=== PATIENT | female | born 2000 | race American Indian/Alaskan Native ===

== ENCOUNTER 2019-07-09 19:27 | Emergency (ER) | payer SELFPAY ==
--- NOTE | 2019-07-09 20:08 | Emergency Department Report ---
ED Female HPI - General Chief complaint: Abdominal Pain Stated complaint: BLOOD IN URINE/BACK PAIN Time Seen by Provider: 07/09/19 19:54 Source: patient, EMS (ems notes not available at time of chart dictationems notes not available at time of chart dictation), RN notes reviewed Mode of arrival: Stretcher Limitations: No Limitations - History of Present Illness Initial comments: This is a 19-year-old female. The patient is not known to this provider previously. She states her primary care doctor is Dr. Hutson. She believes that she is today. Assuming she is today, this will be her fourth life time . She reports that she is 4, P1, 1 miscarriage, one episode of elective termination of . She presents to be in with a complaint of painless vaginal bleeding, this started earlier on today, she reports 3 positive home test, and reports resolved paralumbar back pain which started yesterday. She denies other complaints. She denies urinary symptoms. The patient indicates her bleeding is constant, and was, does not radiate anywhere, and does not have exacerbating or relieving factors. The back pain that she had yesterday was achy and crampy, paralumbar, did not radiate anywhere. MD Complaint: other -: days(s) Consistency: constant Improves with: none Worsens with: none Are you Now?: Yes - Related Data Previous Rx's Medication Instructions Recorded Last Taken Type Doxylamine Succinate/Vit B6 1 each PO QHS PRN #30 tablet. 07/09/19 Unknown Rx [Gris Mcintyre 10-10 mg Tablet] Jennifer Root [Jennifer] 250 mg PO QID PRN #30 capsule 07/09/19 Unknown Rx Vit-Fe Fumar-FA [ 1 tab PO QDAY #30 tablet 07/09/19 Unknown Rx Vitamin] Allergies Allergy/AdvReac Type Severity Reaction Status Date / Time No Known Allergies Allergy Unverified 07/09/19 19:43 ED Review of Systems ROS: Stated complaint: BLOOD IN URINE/BACK PAIN Other details as noted in HPI Constitutional: denies: fever Eyes: denies: eye discharge ENT: denies: epistaxis Respiratory: denies: cough Cardiovascular: denies: chest pain Gastrointestinal: denies: abdominal pain, nausea, vomiting Genitourinary: abnormal menses. denies: dysuria Musculoskeletal: back pain Skin: denies: lesions Neurological: denies: weakness ED Past Medical Hx - Past Medical History Previous Medical History?: No - Surgical History Past Surgical History?: No - Medications Home Medications: Home Medications Medication Instructions Recorded Confirmed Last Taken Type Doxylamine Succinate/Vit B6 1 each PO QHS PRN #30 tablet. 07/09/19 Unknown Rx [Diclegis Dr 10-10 mg Tablet] Jennifer Root [Jennifer] 250 mg PO QID PRN #30 capsule 07/09/19 Unknown Rx Vit-Fe Fumar-FA [ 1 tab PO QDAY #30 tablet 07/09/19 Unknown Rx Vitamin] ED Physical Exam - General Limitations: No Limitations General appearance: alert, in no apparent distress - Head Head exam: Present: atraumatic, normocephalic - Eye Eye exam: Present: normal appearance, EOMI. Absent: nystagmus - ENT ENT exam: Present: normal exam, normal orophraynx, mucous membranes moist, normal external ear exam - Neck Neck exam: Present: normal inspection, full ROM. Absent: tenderness, mening ismus - Respiratory Respiratory exam: Present: normal lung sounds bilaterally. Absent: respiratory distress - Cardiovascular Cardiovascular Exam: Present: regular rate, normal rhythm, normal heart sounds. Absent: bradycardia, tachycardia, irregular rhythm, systolic murmur, diastolic murmur, rubs, gallop - GI/Abdominal GI/Abdominal exam: Present: soft. Absent: distended, tenderness, guarding, rebound, rigid, pulsatile mass - External exam: Present: normal external exam, other (chaperoned By Tasha Calhoun RN). Absent: erythema, swelling, lesions Speculum exam: Absent: vaginal bleeding - Extremities Exam Extremities exam: Present: normal inspection, full ROM, other (2+ pulses noted in the bilateral upper, lower extremities. Compartments soft. No long bony tenderness. The pelvis is stable.). Absent: pedal edema, joint swelling, calf tenderness - Back Exam Back exam: Present: normal inspection, full ROM. Absent: tenderness, CVA tenderness (R), CVA tenderness (L), paraspinal tenderness, vertebral tenderness - Neurological Exam Neurological exam: Present: alert, other (Extraocular movements intact. Tongue midline. No facial droop. Facial sensation intact to light touch in the V1, V2, V3 distribution bilaterally. 5 and 5 strength in 4 extremities.. Sensation is intact to light touch in 4 extremities.). Absent: motor sensory deficit - Psychiatric Psychiatric exam: Present: normal affect, normal mood - Skin Skin exam: Present: warm, dry, intact, normal color. Absent: rash ED Course Vital Signs 07/09/19 21:49 Temperature 98.8 F Pulse Rate 96 H Respiratory 18 Rate Blood Pressure 106/71 [Left] O2 Sat by Pulse 98 Oximetry - Reevaluation(s) Reevaluation #1: 07/09/19 21:13 Differential diagnosis, including not limited to: Miscarriage, threatened miscarriage, ectopic Assessment and plan: 19-year-old female, reports that she is , with resolved lower back pain, and report of vaginal bleeding. Laboratory studies indicate the patient is . Urinalysis reviewed not consistent with infectious etiology. Ultrasound pending at this time. Patient asking to drink water at this time. ED Medical Decision Making - Lab Data Result diagrams: 07/09/19 19:58 07/09/19 19:58 Lab Results 07/09/19 07/09/19 07/09/19 Range/Units 19:58 19:58 20:02 WBC 6.0 (4.5-11.0) K/mm3 RBC 3.90 (3.65-5.03) M/mm3 Hgb 12.6 (10.1-14.3) gm/dl Hct 37.1 (30.3-42.9) % MCV 95 (79-97) fl MCH 32 (28-32) pg MCHC 34 (30-34) % RDW 14.8 (13.2-15.2) % Plt Count 279 (140-440) K/mm3 Lymph % (Auto) 22.4 (13.4-35.0) % Branch % (Auto) 10.3 H (0.0-7.3) % Eos % (Auto) 0.2 (0.0-4.3) % Baso % (Auto) 0.3 (0.0-1.8) % Lymph # 1.3 (1.2-5.4) K/mm3 Branch # 0.6 (0.0-0.8) K/mm3 Eos # 0.0 (0.0-0.4) K/mm3 Baso # 0.0 (0.0-0.1) K/mm3 Seg Neutrophils % 66.8 (40.0-70.0) % Seg Neutrophils # 4.0 (1.8-7.7) K/mm3 HCG, Qual Positive (Negative) Urine Color Yellow (Yellow) Urine Turbidity Clear (Clear) Urine pH 5.0 (5.0-7.0) Ur Specific [place] 1.016 (1.003-1.030) Urine Protein <15 mg/dl (Negative) mg/dL Urine Glucose (UA) Neg (Negative) mg/dL Urine Ketones Neg (Negative) mg/dL Urine Blood Mod (Negative) Urine Nitrite Neg (Negative) Urine Bilirubin Neg (Negative) Urine Urobilinogen 2.0 (<2.0) mg/dL Ur Leukocyte Esterase Tr (Negative) Urine WBC (Auto) 3.0 (0.0-6.0) /HPF Urine RBC (Auto) 2.0 (0.0-6.0) /HPF U Epithel Cells (Auto) 2.0 (0-13.0) /HPF Urine Mucus Few /HPF Urine Opiates Screen Urine Methadone Screen Ur Barbiturates Screen Ur Phencyclidine Scrn Ur Amphetamines Screen U Benzodiazepines Scrn Urine Cocaine Screen Blood Type 07/09/19 07/09/19 Range/Units 20:07 20:19 WBC (4.5-11.0) K/mm3 RBC (3.65-5.03) M/mm3 Hgb (10.1-14.3) gm/dl Hct (30.3-42.9) % MCV (79-97) fl MCH (28-32) pg MCHC (30-34) % RDW (13.2-15.2) % Plt Count (140-440) K/mm3 Lymph % (Auto) (13.4-35.0) % Branch % (Auto) (0.0-7.3) % Eos % (Auto) (0.0-4.3) % Baso % (Auto) (0.0-1.8) % Lymph # (1.2-5.4) K/mm3 Branch # (0.0-0.8) K/mm3 Eos # (0.0-0.4) K/mm3 Baso # (0.0-0.1) K/mm3 Seg Neutrophils % (40.0-70.0) % Seg Neutrophils # (1.8-7.7) K/mm3 HCG, Qual (Negative) Urine Color (Yellow) Urine Turbidity (Clear) Urine pH (5.0-7.0) Ur Specific Stanton (1.003-1.030) Urine Protein (Negative) mg/dL Urine Glucose (UA) (Negative) mg/dL Urine Ketones (Negative) mg/dL Urine Blood (Negative) Urine Nitrite (Negative) Urine Bilirubin (Negative) Urine Urobilinogen (<2.0) mg/dL Ur Leukocyte Esterase (Negative) Urine WBC (Auto) (0.0-6.0) /HPF Urine RBC (Auto) (0.0-6.0) /HPF U Epithel Cells (Auto) (0-13.0) /HPF Urine Mucus /HPF Urine Opiates Screen Presumptive negative Urine Methadone Screen Presumptive negative Ur Barbiturates Screen Presumptive negative Ur Phencyclidine Scrn Presumptive negative Ur Amphetamines Screen Presumptive negative U Benzodiazepines Scrn Presumptive negative Urine Cocaine Screen Presumptive negative Blood Type O POSITIVE Vital Signs 07/09/19 21:49 Temperature 98.8 F Pulse Rate 96 H Respiratory 18 Rate Blood Pressure 106/71 [Left] O2 Sat by Pulse 98 Oximetry - Radiology Data Radiology results: report reviewed, image reviewed Print Report Referring Physician: MICHAEL VILLASENOR Patient Name: SALOMÓN BECKMAN Date of : 2000 Sex: Female Report Date: 2019-07-09 Report Status: Finalized Findings [facility] [address] [place] [address] Ultrasound Report Signed Patient: SALOMÓN BECKMAN MR#: [id number] : 2000 Acct:[id number] Age/Sex: 19 / F ADM Date: 07/09/19 Loc: ED Attending Dr: Ordering Physician: MICHAEL VILLASENOR MD Date of Service: 07/09/19 Procedure(s): US OB transvaginal Accession Number(s): [id number] cc: MICHAEL VILLASENOR MD ULTRASOUND OBSTETRIC INDICATION: Vaginal bleeding. Unknown clinical gestational age. TECHNIQUE: Transabdominal and Transvaginal. COMPARISON: None available. FINDINGS: GESTATIONAL SAC: Well-defined oval shape and intrauterine in location. YOLK SAC: No significant abnormality. EMBRYO/FETUS: No significant abnormality. - [place]-Rump Length = 0.29 cm = 5 weeks, 6 day(s). - Heart Rate = 95 beats per minute. ADNEXA: The right ovary is not seen. The left ovary is normal in size and appearance. FREE FLUID: None. ADDITIONAL FINDINGS: None. IMPRESSION: Single, living intrauterine with estimated sonographic age of 5 weeks, 6 day(s). Signer Name: Josr Amezcua MD Signed: 07/09/2019 9:50 PM Workstation Name: [id number] Transcribed By: DE Dictated By: Josr Amezcua MD Electronically Authenticated By: Josr Amezcua MD Signed Date/Time: 07/09/192149 DD/ 47 Critical care attestation.: If time is entered above; I have spent that time in minutes in the direct care of this critically ill patient, excluding procedure time. ED Disposition Clinical Impression: Miscarriage Disposition: DC-01 TO HOME OR SELFCARE Is pt being admited?: No Does the pt Need Aspirin: No Condition: Stable Instructions: Threatened Miscarriage (ED) Additional Instructions: Take the medications as needed/directed. Rest, avoid heavy lifting, and avoid strenuous physical activities. Follow up with an [facility] doctor as soon as possible to initiate outpatient care. Recommend patient stop smoking as soon as possible. In addition, urine drug screen demonstrated presence of marijuana. The patient is consuming marijuana, or is being exposed to it in a secondhand fashion, recommend patient stop being exposed to or smoking marijuana right away. Long-term consumption of marijuana, and tobacco/cigarettes may predispose to recurrent miscarriage. Please return to the emergency room right away with bleeding more than 2-3 pads soaked per hour, lightheadedness, dizziness, chest pain, shortness of breath, loss of consciousness, new, worsening or different symptoms not present on the initial emergency room evaluation. Prescriptions: Doxylamine Succinate/Vit B6 [Gris Mcintyre 10-10 mg Tablet] 1 each PO QHS PRN #30 tablet. PRN Reason: Nausea Jennifer Root [Jennifer] 250 mg PO QID PRN #30 capsule PRN Reason: Nausea Vit-Fe Fumar-FA [ Vitamin] 1 tab PO QDAY #30 tablet Referrals: [facility] [Provider Group] - 3-5 Days [facility] [Provider Group] - 3-5 Days [facility] [Provider Group] - 3-5 Days
[2019-07-09 20:21] LABS: Basophils % (Auto) 0.3 % (0.0-1.8); Eosinophils % (Auto) 0.2 % (0.0-4.3); Hematocrit 37.1 % (30.3-42.9); Hemoglobin 12.6 gm/dl (10.1-14.3); Lymphocytes # (Auto) 1.3 K/mm3 (1.2-5.4); Lymphocytes % (Auto) 22.4 % (13.4-35.0); Mean Corpuscular HGB Conc 34 % (30-34); Mean Corpuscular Volume 95 fl (79-97); Monocytes # (Auto) 0.6 K/mm3 (0.0-0.8); Monocytes % (Auto) 10.3 % (0.0-7.3); Platelet Count 279 K/mm3 (140-440); Red Cell Distribution Width 14.8 % (13.2-15.2)
[2019-07-09 20:27] LABS: Bilirubin,Urine NEG (Negative); Blood,Urine MOD (Negative); Color,Urine Yellow (Yellow); Mucus,Urine FEW /HPF; Protein,Urine <15 mg/dL mg/dL (Negative)
[2019-07-09 20:47] LABS: Amphetamine Screen,Urine PRESUMPTIVE NEGATIVE; Benzodiazepines Screen,Urine PRESUMPTIVE NEGATIVE; Cocaine Screen,Urine PRESUMPTIVE NEGATIVE; Methadone Screen,Urine PRESUMPTIVE NEGATIVE; Opiate Screen,Urine PRESUMPTIVE NEGATIVE
[2019-07-09 21:16] LABS: Cannabinoid Screen,Urine PRESUMPTIVE POSITIVE
[2019-07-09 21:38] LABS: Alanine Aminotransferase 11 units/L (7-56); Albumin 4.2 g/dL (3.9-5); BUN/Creatinine Ratio 10; Blood Urea Nitrogen 8 mg/dL (7-17); Calcium 9.1 mg/dL (8.4-10.2); Hemolysis Index 5
[2019-07-09 21:50] VITALS: BP 106/71
--- NOTE | 2019-07-09 21:54 | Ultrasound Report ---
ULTRASOUND OBSTETRIC INDICATION: Vaginal bleeding. Unknown clinical gestational age. TECHNIQUE: Transabdominal and Transvaginal. COMPARISON: None available. FINDINGS: GESTATIONAL SAC: Well-defined oval shape and intrauterine in location. YOLK SAC: No significant abnormality. EMBRYO/FETUS: No significant abnormality. - [place]-Rump Length = 0.29 cm = 5 weeks, 6 day(s). - Heart Rate = 95 beats per minute. ADNEXA: The right ovary is not seen. The left ovary is normal in size and appearance. FREE FLUID: None. ADDITIONAL FINDINGS: None. IMPRESSION: Single, living intrauterine with estimated sonographic age of 5 weeks, 6 day(s). Signer Name: Josr Amezcua MD Signed: 07/09/2019 9:50 PM Workstation Name: [id number]
--- NOTE | 2019-07-09 21:54 | Ultrasound Report ---
ULTRASOUND OBSTETRIC INDICATION: Vaginal bleeding. Unknown clinical gestational age. TECHNIQUE: Transabdominal and Transvaginal. COMPARISON: None available. FINDINGS: GESTATIONAL SAC: Well-defined oval shape and intrauterine in location. YOLK SAC: No significant abnormality. EMBRYO/FETUS: No significant abnormality. - [place]-Rump Length = 0.29 cm = 5 weeks, 6 day(s). - Heart Rate = 95 beats per minute. ADNEXA: The right ovary is not seen. The left ovary is normal in size and appearance. FREE FLUID: None. ADDITIONAL FINDINGS: None. IMPRESSION: Single, living intrauterine with estimated sonographic age of 5 weeks, 6 day(s). Signer Name: Josr Amezcua MD Signed: 07/09/2019 9:50 PM Workstation Name: [id number]
== END 2019-07-09 22:14 | disposition home or self-care (01) ==
LOC: ED 19:27
DX: O02.1 Missed abortion (principal); Z3A.01 Less than 8 weeks gestation of pregnancy
CPT/HCPCS: 36415; 76801; 76817; 80053; 80307; 81001; 84702; 84703; 85025; 86850; 86900; 86901